=== PATIENT | male | born 1975 | race Caucasian/White ===

== ENCOUNTER 2018-02-06 05:57 | Emergency (ER) | payer BC, OTHER ==
[2018-02-06] MEDS ORDERED: Sodium Chloride 0.9% 10 ML Syringe FLUSH PRN (06:25)
[2018-02-06] MEDS ORDERED: Aspirin 81 MG Tab.Chew PO ONE (06:25)
--- NOTE | 2018-02-06 06:35 | EDM.PDOC ---
<Giancarlo Jones - Last Filed: 02/06/18 06:53> ED HPI GENERAL MEDICAL PROBLEM - General Chief Complaint: Cardiovascular Problem Stated Complaint: HIGH BLOOD PRESSURE Time Seen by Provider: 02/06/18 06:19 Source of Information: Reports: Patient History Limitations: Reports: No Limitations - History of Present Illness INITIAL COMMENTS - FREE TEXT/NARRATIVE: The patient presents with an anxious feeling and some chest pain. This all started this morning. He woke up with the chest pain. The pain is in the middle of his chest. He says it is sharp and he gets the pain from time to time. He has no shortness of breath with it. Exertion does not make it worse. He has no fever, chills, cough, nausea or vomiting. He denies abdominal pain. He was on his way to work this morning and the roads are not good and he started feeling anxious and uneasy. He says this has been going on for months every since his had a possible stroke and she was sent to [place]. Everything checked out okay for her. She did not have a stroke but since then he has felt anxious. He feels like he could have a heart attack or a stroke. He smokes and he is trying to quit but the more he thinks about quitting the more anxious he is. He says at times he has hard time sleeping and he has to walk around to get over the anxious feeling. He say Melissa Rao last year and she told him he has high blood pressure. He was going to try diet and exercise to bring it down but that has not helped. His blood pressure is elevated today. He denies headache. Onset: Gradual Duration: Hour(s): Location: Reports: Chest Quality: Reports: Sharp Severity: Mild Improves with: Reports: None Worsens with: Reports: None Associated Symptoms: Reports: Chest Pain. Denies: Cough, Diaphoresis, Fever/ Chills, Headaches, Nausea/Vomiting, Shortness of Breath - Related Data Allergies Allergy/AdvReac Type Severity Reaction Status Date / Time No Known Allergies Allergy Verified 02/06/18 06:15 Home Meds: Home Meds Citalopram [Citalopram HBr] 20 mg PO DAILY #30 tab 02/06/18 [Rx] amLODIPine Besylate [Norvasc] 10 mg PO DAILY #30 tablet 03/19/18 [Rx] Past Medical History Cardiovascular History: Reports: Hypertension - Past Surgical History Musculoskeletal Surgical History: Reports: Arthroscopic Knee Social & Family History - Tobacco Use Smoking Status *Q: Current Every Day Smoker Years of Tobacco use: 20 Packs/Tins Daily: 1 - Caffeine Use Caffeine Use: Reports: Coffee - Recreational Drug Use Recreational Drug Use: No ED ROS GENERAL - Review of Systems Review Of Systems: See Below Constitutional: Reports: No Symptoms HEENT: Reports: No Symptoms Respiratory: Reports: No Symptoms Cardiovascular: Reports: Chest Pain Endocrine: Reports: No Symptoms GI/Abdominal: Reports: No Symptoms : Reports: No Symptoms Musculoskeletal: Reports: No Symptoms Skin: Reports: No Symptoms Neurological: Reports: No Symptoms Psychiatric: Reports: Anxiety ED EXAM, GENERAL - Physical Exam Exam: See Below Exam Limited By: No Limitations General Appearance: Alert, No Apparent Distress Ears: Normal External Exam Nose: Normal Inspection Head: Atraumatic, Normocephalic Neck: Normal Inspection Respiratory/Chest: No Respiratory Distress, Lungs Clear, Normal Breath Sounds Cardiovascular: Regular Rate, Rhythm, No Edema, No Murmur GI/Abdominal: Soft, Non-Tender, No Organomegaly, No Mass Back Exam: Normal Inspection Extremities: Normal Inspection Neurological: Alert, Oriented, No Motor/Sensory Deficits EKG INTERPRETATION EKG Date: 02/06/18 Time: 06:30 Rhythm: NSR Rate (Beats/Min): 85 [place]: Normal P-Wave: Present QRS: Normal ST-T: Normal QT: Normal Course - Vital Signs Last Recorded V/S: Last Vital Signs Temp 36.3 C 02/06/18 06:12 Pulse 86 02/06/18 06:12 Resp 20 02/06/18 06:12 BP 167/104 H 02/06/18 06:12 Pulse Ox 100 02/06/18 06:12 - Orders/Labs/Meds Orders: Active Orders 24 hr Category Date Time Status Cardiac Monitoring [RC] . DIRECTED Care 02/06/18 06:25 Active EKG Documentation Completion [RC] STAT Care 02/06/18 06:26 Active Peripheral IV Care [RC] . DIRECTED Care 02/06/18 06:26 Active Chest 1V Frontal [CR] Stat Exams 02/06/18 06:26 Taken Sodium Chloride 0.9% [Saline Flush] Med 02/06/18 06:25 Active 10 ml FLUSH ASDIRECTED PRN Peripheral IV Insertion Adult [OM.PC] Stat Oth 02/06/18 06:25 Ordered Medication Orders Sodium Chloride (Saline Flush) 10 ml FLUSH ASDIRECTED PRN PRN Reason: Keep Vein Open Last Admin: 02/06/18 06:40 Dose: 10 ml Labs: Laboratory Tests 02/06/18 02/06/18 Range/Units 06:25 06:35 WBC 9.28 H (4.23-9.07) K/mm3 RBC 5.79 (4.63-6.08) M/mm3 Hgb 16.4 (13.7-17.5) gm/L Hct 48.5 (40.1-51.0) % MCV 83.8 (79.0-92.2) fl MCH 28.3 (25.7-32.2) pg MCHC 33.8 (32.2-35.5) g/dl RDW Std Deviation 41.9 (35.1-43.9) fL Plt Count 255 (163-337) K/mm3 MPV 9.2 L (9.4-12.3) fl Neut % (Auto) 63.8 (34.0-67.9) % Lymph % (Auto) 24.4 (21.8-53.1) % [place] % (Auto) 7.9 (5.3-12.2) % Eos % (Auto) 2.4 (0.8-7.0) Baso % (Auto) 0.9 (0.1-1.2) % Neut # (Auto) 5.93 H (1.78-5.38) K/mm3 Lymph # (Auto) 2.26 (1.32-3.57) K/mm3 [place] # (Auto) 0.73 (0.30-0.82) K/mm3 Eos # (Auto) 0.22 (0.04-0.54) K/mm3 Baso # (Auto) 0.08 (0.01-0.08) K/mm3 Sodium 136 (136-145) mEq/L Potassium 3.7 (3.5-5.1) mEq/L Chloride 101 (98-107) mEq/L Carbon Dioxide 27 (21-32) mEq/L Anion Gap 11.7 (5-15) BUN 17 (7-18) mg/dL Creatinine 1.1 (0.7-1.3) mg/dL Est Cr Clr Drug Dosing 102.42 mL/min Estimated GFR (MDRD) > 60 (>60) mL/min BUN/Creatinine Ratio 15.5 (14-18) Glucose 220 H (74-106) mg/dL Calcium 9.6 (8.5-10.1) mg/dL Total Bilirubin 0.7 (0.2-1.0) mg/dL AST 36 (15-37) U/L ALT 71 H (16-63) U/L Alkaline Phosphatase 79 (46-116) U/L Troponin I 0.029 (0.00-0.056) ng/mL Total Protein 7.2 (6.4-8.2) g/dl Albumin 4.0 (3.4-5.0) g/dl Globulin 3.2 gm/dL Albumin/Globulin Ratio 1.3 (1-2) Meds: Medications Generic Name Dose Route Start Last Admin Trade Name Freq PRN Reason Stop Dose Admin Sodium Chloride 10 ml 02/06/18 06:25 02/06/18 06:40 Saline Flush FLUSH 10 ml ASDIRECTED PRN Administration Keep Vein Open Discontinued Medications Generic Name Dose Route Start Last Admin Trade Name Freq PRN Reason Stop Dose Admin Aspirin 324 mg 02/06/18 06:25 02/06/18 06:40 Aspirin PO 02/06/18 06:26 324 mg ONETIME ONE Administration - Re-Assessments/Exams Free Text/Narrative Re-Assessment/Exam: 02/06/18 06:37 I ordered an IV saline lock, EKG, CXR, labs and aspirin. His EKG shows a NSR with no acute changes. 02/06/18 06:41 His CXR looks good. 02/06/18 06:53 It is change of shift. Dr Gupta to take over. Departure - Departure Disposition: Home, Self-Care 01 Clinical Impression: Non-cardiac chest pain, Uncontrolled hypertension, Generalized anxiety disorder Prescriptions: amLODIPine Besylate [Norvasc] 10 mg PO DAILY #30 tablet Citalopram [Citalopram HBr] 20 mg PO DAILY #30 tab Referrals: Melissa Rao GATE PERSON [Primary Care Provider] - Forms: ED Department Discharge Additional Instructions: Evaluation the emergency room this morning carried out primarily by Dr. Rojas. Sudden onset of central chest pain brought you to the ED. This is felt to be primarily anxiety related. Normal chest x-ray normal ECG and now normal labs showing no signs of cardiac her heart involvement. It is felt that you're suffering from generalized anxiety disorder for which he describes been going on for a significant period time and occur sporadically without any warning or reason. All his generalized anxiety disorder. Suggest use of citalopram 20 mg once daily every morning to try and bring this under control. Of note he won't do much for the first 10-12 days and after that then he should start to notice that she rarely experiences similar side effects such as pacing or agitation or stress related event. Second problem identified was uncontrolled high blood pressure. BP was primarily 165/95. It is therefore.suggested that you start blood pressure medication such as Norvasc 10 mg once daily which was started in the ED today. This will bring her pressure down gradually over the next couple of weeks. We are aiming for around 145-135 on the top and 85-80 on the bottom. Check her blood pressure when you're not in the clinic or hospital setting such as [facility] her pharmacy and write down the numbers that you get for your blood pressure. Follow-up with your doctor in 1 month's time for blood pressure review. Also for citalopram for anxiety tablet review. <Renny Gupta - Last Filed: 02/06/18 07:54> Course - Re-Assessments/Exams Free Text/Narrative Re-Assessment/Exam: 02/06/18 07:29 labs are back.Labs reveal a normal WBC at 9.28 with auto differential of 63.8% neutrophils. Hemoglobin 16.4 with hematocrit of 40.5. Platelet count is 255,000. Sodium 136 potassium 3.7. Chloride 11 bicarbonate 27. Anion gap is normal 11.7. BUN is 17 with a creatinine of 1.1. Glucose is elevated at 220. Liver function shows mildly elevated ALT at 71. At some point he should be checked for hepatitis C. Troponin I is less than 0.029. Normal Departure - Departure Time of Disposition: 07:49 Condition: Fair
[2018-02-06] MEDS ORDERED: HYDROmorphone 0.5 MG/0.5 ML SYRINGE IVPUSH ONE (07:28)
[2018-02-06] MEDS ORDERED: amLODIPine 10 MG Tab PO ONE (07:49)
--- NOTE | 2018-02-06 10:01 | CR ---
Chest: Portable view of the chest was obtained. Comparison: No prior study. Heart size and mediastinum are normal. Lungs are clear. Bony structures are unremarkable. Impression: 1. Nothing acute is appreciated on portable chest x-ray. Diagnostic code #1
== END 2018-02-06 08:07 | disposition home or self-care (01) ==
LOC: JD.ED 05:57
DX: F41.9 Anxiety disorder, unspecified (principal); R07.89 Other chest pain; I10 Essential (primary) hypertension; F17.210 Nicotine dependence, cigarettes, uncomplicated; Z79.899 Other long term (current) drug therapy
CPT/HCPCS: 36415; 71045; 80053; 84484; 85025; 93005; 99284; A9270; J7050; 93010; 99285-25

== ENCOUNTER 2018-02-06 14:16 | Emergency (ER) | payer OTHER ==
[2018-02-06] MEDS ORDERED: ALPRAZolam 1 MG Tab PO ONE (14:38)
--- NOTE | 2018-02-06 14:44 | EDM.PDOC ---
ED HPI GENERAL MEDICAL PROBLEM - General Chief Complaint: Allergic Reaction Stated Complaint: REACTION TO MEDICATION Time Seen by Provider: 02/06/18 14:30 Source of Information: Reports: Patient, Family History Limitations: Reports: No Limitations - History of Present Illness INITIAL COMMENTS - FREE TEXT/NARRATIVE: 42-year-old male returns to the ED for the second time today. Patient was seen earlier in the ED by Dr. Jones with some central chest discomfort associated with strong anxiety with the inability to relax and feeling of need to pace the floor etc. Complete cardiac workup was performed and was found to be negative. Decision made since he's having quite a bit of troubles with anxiety lately to start him on citalopram 20 mg a day. He received Norvasc 10 mg by mouth before leaving the department because blood pressure was sustained greater than 160/ 95. He reports that he went to the doctor picked up his medications around 0900 hrs. and took the medication basically an empty stomach ie. citalopram 20 mg within a couple hours he started to feel unwell with increased feeling of anxiety and numbness tingling in his left leg and like he was cold as ice. Broke out in a sweat felt flushed hot prickly etc. This may well been side effect of the citalopram and empty stomach since this is the first time he took it. Upon arrival his blood pressure is quite high at 188/97. Forward certainly not the Norvasc that precipitated the symptoms. Question is whether he developed another anxiety attack over the citalopram helped precipitate another anxiety attack. He feels somewhat better since Vanna return to the ED. Onset: Today Onset Date: 02/06/18 Onset Time: 11:00 Duration: Hour(s): Location: Reports: Generalized Quality: Reports: Same as Previous Episode (Only worse particularly involving his left lower extremity felt like it was cold or numb and tingly.) Severity: Moderate Improves with: Reports: None Worsens with: Reports: None Context: Reports: Other (Targeted on citalopram 20 mg daily this morning and this may have made him more anxious than he had been already.). Denies: Activity, Exercise, Lifting, Sick Contact, Trauma Associated Symptoms: Reports: Diaphoresis, Other (Dense of needing to pace the floor very uneasy no position is comfortable.). Denies: Confusion, Chest Pain, Cough, cough w sputum, Fever/Chills, Headaches, Loss of Appetite, Malaise, Nausea/Vomiting, Rash, Seizure, Shortness of Breath, Syncope Treatments [employer] CO[employer]: Reports: Other (see below) (He has taken no further medications today.) Headache Pain Score (Numeric/FACES): 6 - Related Data Allergies Allergy/AdvReac Type Severity Reaction Status Date / Time No Known Allergies Allergy Verified 02/06/18 14:23 Home Meds: Home Meds ALPRAZolam [Xanax] 1 mg PO Q8H PRN #12 tablet 02/06/18 [Rx] Citalopram [Citalopram HBr] 20 mg PO DAILY #30 tab 02/06/18 [Rx] amLODIPine Besylate [Norvasc] 10 mg PO DAILY #30 tablet 02/06/18 [Rx] Past Medical History Cardiovascular History: Reports: Hypertension - Past Surgical History Musculoskeletal Surgical History: Reports: Arthroscopic Knee Social & Family History - Tobacco Use Smoking Status *Q: Current Every Day Smoker Years of Tobacco use: 20 Packs/Tins Daily: 1 - Caffeine Use Caffeine Use: Reports: Coffee - Recreational Drug Use Recreational Drug Use: No - Living Situation & Occupation Living situation: Reports: Occupation: Employed ED ROS ALLERGIC REACTION - Review of Systems Review Of Systems: See Below Constitutional: Reports: Malaise, Weakness, Fatigue, Decreased Appetite, Weight Loss. Denies: Fever, Chills HEENT: Reports: No Symptoms Respiratory: Reports: No Symptoms Cardiovascular: Reports: No Symptoms Endocrine: Reports: No Symptoms GI/Abdominal: Reports: No Symptoms : Reports: No Symptoms Musculoskeletal: Reports: No Symptoms Skin: Reports: Other (Christmas a little prickly and hot for a period of time suggesting side effects from citalopram. Also is mildly diaphoretic.) Neurological: Reports: No Symptoms Psychiatric: Reports: Anxiety, Other Hematologic/Lymphatic: Reports: No Symptoms (Clinically expressed a panic attack again today.) Immunologic: Reports: No Symptoms ED EXAM GENERAL NO PERIP PULSE - Physical Exam Exam: See Below Exam Limited By: No Limitations General Appearance: Alert, WD/WN, Anxious, Mild Distress, Other (His hair is wet compatible with him having had diaphoresis) Eye Exam: Right Eye: Abnormal EOM, Bilateral Eye: Normal Fundi Throat/Mouth: Normal Inspection, Normal Lips, Normal Teeth, Normal Gums, Normal Oropharynx Head: Atraumatic, Normocephalic Neck: Normal Inspection, Supple, Non-Tender, Full Range of Motion. No: Lymphadenopathy (R), Tender Midline Respiratory/Chest: No Respiratory Distress, Lungs Clear, Normal Breath Sounds, No Accessory Muscle Use Cardiovascular: Normal Peripheral Pulses, Regular Rate, Rhythm, No Edema, No Murmur, No Rub GI/Abdominal: Normal Bowel Sounds, Soft, Non-Tender, No Organomegaly Neurological: Alert, Oriented, CN II-XII Intact, Normal Cognition, Normal Gait Psychiatric: Anxious Skin Exam: Warm, Dry, Intact, Normal Color, No Rash, Other (Skin feels cool now. Anus hair is moist suggesting that he has been recently diaphoretic) Course - Vital Signs Last Recorded V/S: Last Vital Signs Temp 36.6 C 02/06/18 14:29 Pulse 98 02/06/18 14:29 Resp 16 02/06/18 14:29 BP 180/98 H 02/06/18 14:29 Pulse Ox 97 02/06/18 14:29 - Orders/Labs/Meds Meds: Medications Discontinued Medications Generic Name Dose Route Start Last Admin Trade Name Freq PRN Reason Stop Dose Admin Alprazolam 1 mg 02/06/18 14:38 02/06/18 14:49 Xanax PO 02/06/18 14:39 1 mg ONETIME ONE Administration - Radiology Interpretation Free Text/Narrative:: 42-year-old male returns to the ED after experiencing either adverse effect to citalopram with precipitation of an anxiety attack almost panic attack with feeling of need to pace the floor position carpal feeling hot prickly numb tingly and [place] his left lower extremity. I've started him on Norvasc 10 mg in the ED because of persistent elevated blood pressure and a history of elevated blood pressure for which he has not been treated for. BP was in the ED was greater than 160/95 the entire time he was here. He was also started on citalopram due to panic attack and generalized anxiety disorder 20 mg strength. She took this about 9:00 this morning after leaving the hospital he picked up his prescription. Took this on an empty stomach. I suspect this may have exacerbated his underlying anxiety attack or you had another anxiety attack and some possible to know. At any rate blood pressure remains markedly elevated and therefore the Norvasc certainly did not lower his blood pressure causing to have any of the side effects. Again most of his symptoms are that of anxiety or panic attack. Given Xanax 1 mg by mouth. Stay in the ED for 45 minutes to an hour to monitor his blood pressure which remains quite high as 167/97 monos in the room. - Re-Assessments/Exams Free Text/Narrative Re-Assessment/Exam: 02/06/18 15:16 blood pressure slowly improving. Currently down to 151/94. Departure - Departure Time of Disposition: 15:38 Disposition: Home, Self-Care 01 Condition: Fair Clinical Impression: Anxiety attack Adverse effects of medication Qualifiers: Encounter type: initial encounter Qualified Code(s): T88.7XXA - Unspecified adverse effect of drug or medicament, initial encounter - Discharge Information Prescriptions: ALPRAZolam [Xanax] 1 mg PO Q8H PRN #12 tablet PRN Reason: Anxiety attack Instructions: Panic Attacks, [id number] Referrals: Melissa Rao CHIEF CHEMIST [Primary Care Provider] - Forms: ED Department Discharge Additional Instructions: Evaluation in the emergency room today after initiating dosage of citalopram 20 mg once daily for control of generalized anxiety disorder. It appears that this caused an increase in the amount of anxiety that she will experience which can occur in certain patients on the first week of use of medication. At any rate which he described with flushing hot spell with sweat nausea and coldness numbness and tingling was that of an anxiety attack likely made worse by citalopram 20 mg started today for the first time. Your blood pressure was actually still too high and did come down with time to 154/89. Therefore the Norvasc that you are started on today is not part of the problem. The fact that the medication may have been taken into stomach may have caused a rapid absorption of the medicine which you're not use too which caused adverse effect. I suggested is to cut the medication in half and only take 10 mg of citalopram for the first 10-12 days of therapy and then increase to a full tablet daily. Norvasc is to be taken once daily at the same time for blood pressure control. I will write a prescription for Xanax 1 mg tablet which is which he received in the ED today. There are 12 tablets which may be taken on an as-needed basis when he develops similar type symptoms. Will be more less likely to occur over the next week to 10 days until the citalopram starts to work. His tablet to be taken every 8 hours as needed but should be taken when not at work or when you can get home from work as it may cause some degree of sedation. Again follow-up with your personal care provider if any further problems occur.
== END 2018-02-06 15:50 | disposition home or self-care (01) ==
LOC: JD.ED 14:16
DX: F41.9 Anxiety disorder, unspecified (principal); T43.225A Adverse effect of selective serotonin reuptake inhibitors, initial encounter; F17.210 Nicotine dependence, cigarettes, uncomplicated; Z79.899 Other long term (current) drug therapy
CPT/HCPCS: 99283; A9270

== ENCOUNTER 2018-02-20 08:00 | Emergency (ER) | payer OTHER ==
[2018-02-20] MEDS ORDERED: Sodium Chloride 0.9% 10 ML Syringe FLUSH PRN (08:44)
[2018-02-20] MEDS ORDERED: Sodium Chloride 0.9% 1,000 ML IV SCH (08:45)
[2018-02-20] MEDS ORDERED: Sodium Chloride 0.9% 10 ML Syringe FLUSH ONE (09:55)
[2018-02-20] MEDS ORDERED: Diatrizoate Meglumine/Diatrizoate Sodium 37% 120 ML Bottle PO ONE (09:55)
[2018-02-20] MEDS ORDERED: Iopamidol 612 MG/ML 150 ML Bottle IVPUSH ONE (09:55)
--- NOTE | 2018-02-20 10:27 | CT ---
CT abdomen and pelvis Technique: Multiple axial sections were obtained from above the dome of the diaphragm inferiorly through the pubic symphysis. Intravenous and oral contrast was utilized. Delayed images were also obtained through the abdomen and pelvis. Comparison: No previous abdominal imaging. Findings: Liver shows diffuse fatty infiltration. Small low-density finding is seen within the anterior right lobe of the liver measuring about 1 cm in size. This is nonspecific for cyst or small solid lesion. This is likely incidental as no additional liver abnormalities are appreciated. Spleen appears within normal limits. Visualized lung bases show nothing acute. Adrenal glands show no nodule. Pancreas is within normal limits. Gallbladder contains no calcified gallstones. Kidneys show symmetric contrast enhancement without hydronephrosis or discrete mass. Aorta shows atherosclerotic calcification without aneurysm. No retroperitoneal adenopathy or mesenteric abnormalities are seen. Appendix is seen which is normal. No pelvic mass or adenopathy is seen. No bowel wall thickening is appreciated. No bowel dilatation is seen. Delayed images shows contrast throughout the ureters and bladder. No free fluid or inflammatory changes seen. Impression: 1. Diffuse fatty infiltration within the liver. 1 cm liver lesion anteriorly within the right lobe which is nonspecific but likely incidental as no other liver lesion is present. 2. No additional abnormality is seen on CT study of the abdomen and pelvis. Diagnostic code #3
[2018-02-20] MEDS ORDERED: ALPRAZolam 1 MG Tab PO ONE (11:37)
--- NOTE | 2018-02-20 11:41 | EDM.PDOC ---
<Lindsey Lincoln - Last Filed: 02/20/18 11:32> ED HPI GENERAL MEDICAL PROBLEM - General Chief Complaint: Diabetic Complaint Stated Complaint: HIGH BLOOD SUGAR/HIGH BLOOD PRESSURE Time Seen by Provider: 02/20/18 08:13 Source of Information: Reports: Patient, Family History Limitations: Reports: No Limitations - History of Present Illness INITIAL COMMENTS - FREE TEXT/NARRATIVE: Patient is a 42 YO male who presents with high blood glucose. He states he was on his way to work when he started feeling really shaky. He turned around and went home. At home he reports a blood glucose of 223. He was started on Metformin approximately 2 weeks ago. He reports not feeling well Tuesday, yesterday, and was not able to eat. He has been having "stomach issues" for about 2 years. He describes it as cold sweats immediately after eating followed by diarrhea. He does admit to some indigestion. He has some abdominal pain located in the left lower quadrant. He states the pain was worse yesterday, rated as 5/10. He had a BM this morning and the pain is better today. He states he has had black tarry stool for several months now. He denies any bright red blood. The abdominal pain goes from right to left and is rarely in the same location. He has not seen his PCP about this abdominal complaint and has not had any workup in the past. The abdominal pain was not worse after starting the Metformin. He states that he has lost about 20 lbs in the last 2 months because he skips meals due to this stomach pain. - Related Data Allergies Allergy/AdvReac Type Severity Reaction Status Date / Time No Known Allergies Allergy Verified 02/20/18 08:12 Home Meds: Home Meds ALPRAZolam [Xanax] 1 mg PO Q8H PRN #12 tablet 02/06/18 [Rx] Citalopram [Citalopram HBr] 20 mg PO DAILY #30 tab 02/06/18 [Rx] amLODIPine Besylate [Norvasc] 10 mg PO DAILY #30 tablet 02/06/18 [Rx] ALPRAZolam [Xanax] 1 mg PO QID PRN #20 tablet 02/20/18 [Rx] metFORMIN [Glucophage] 500 mg PO DAILY 02/20/18 [History] Past Medical History Cardiovascular History: Reports: Hypertension Endocrine/Metabolic History: Reports: Diabetes, Type II - Past Surgical History Musculoskeletal Surgical History: Reports: Arthroscopic Knee Social & Family History - Family History Family Medical History: Noncontributory - Tobacco Use Smoking Status *Q: Current Every Day Smoker Years of Tobacco use: 25 Packs/Tins Daily: 0.1 - Caffeine Use Caffeine Use: Reports: Coffee - Recreational Drug Use Recreational Drug Use: No - Living Situation & Occupation Living situation: Reports: Occupation: Employed ED ROS GENERAL - Review of Systems Review Of Systems: See Below Constitutional: Reports: Weight Loss (20 lbs over the past 2 months) Respiratory: Reports: No Symptoms Cardiovascular: Reports: No Symptoms Endocrine: Reports: Other (hyperglycemia) GI/Abdominal: Reports: Abdominal Pain (LLQ), Black Stool, Diarrhea, Decreased Appetite. Denies: Bloody Stool, Difficulty Swallowing, Distension, Hematemesis , Mucous in Stool, Vomiting : Reports: No Symptoms Musculoskeletal: Reports: No Symptoms Skin: Reports: No Symptoms Neurological: Reports: No Symptoms Psychiatric: Reports: Anxiety ED EXAM GENERAL NO PERIP PULSE - Physical Exam Exam: See Below Exam Limited By: No Limitations General Appearance: Alert, WD/WN, No Apparent Distress, Anxious Throat/Mouth: Normal Inspection, Normal Lips, Normal Gums Head: Atraumatic, Normocephalic Respiratory/Chest: No Respiratory Distress, Lungs Clear, Normal Breath Sounds Cardiovascular: Normal Peripheral Pulses, Regular Rate, Rhythm GI/Abdominal: Normal Bowel Sounds, Soft, No Distention, Tender (mild tenderness LLQ). No: Guarding, Rebound Rectal (Males) Exam: Normal Exam Neurological: Alert, Oriented, CN II-XII Intact Psychiatric: Normal Affect, Anxious Skin Exam: Warm, Dry, Intact, Normal Color Course - Vital Signs Last Recorded V/S: Last Vital Signs Temp 97.7 F 02/20/18 08:07 Pulse 84 02/20/18 08:07 Resp 16 02/20/18 08:07 BP 155/107 H 02/20/18 08:07 Pulse Ox 98 02/20/18 08:07 - Orders/Labs/Meds Orders: Active Orders 24 hr Category Date Time Status Cardiac Monitoring [RC] . DIRECTED Care 02/20/18 08:44 Active Peripheral IV Care [RC] . DIRECTED Care 02/20/18 08:46 Active UA W/MICROSCOPIC [URIN] Stat Lab 02/20/18 10:15 Ordered Sodium Chloride 0.9% [Normal Saline] 1,000 ml Med 02/20/18 08:45 Active IV ASDIRECTED Sodium Chloride 0.9% [Saline Flush] Med 02/20/18 08:44 Active 10 ml FLUSH ASDIRECTED PRN Peripheral IV Insertion Adult [OM.PC] Stat Oth 02/20/18 08:44 Ordered Medication Orders Sodium Chloride (Normal Saline) 1,000 mls @ 125 mls/hr IV ASDIRECTED LAINE Last Admin: 02/20/18 09:07 Dose: 125 mls/hr Sodium Chloride (Saline Flush) 10 ml FLUSH ASDIRECTED PRN PRN Reason: Keep Vein Open Last Admin: 02/20/18 09:07 Dose: 10 ml Labs: Laboratory Tests 02/20/18 02/20/18 02/20/18 Range/Units 08:04 09:00 09:00 WBC 11.78 H (4.23-9.07) K/mm3 RBC 6.01 (4.63-6.08) M/mm3 Hgb 17.1 (13.7-17.5) gm/L Hct 51.0 (40.1-51.0) % MCV 84.9 (79.0-92.2) fl MCH 28.5 (25.7-32.2) pg MCHC 33.5 (32.2-35.5) g/dl RDW Std Deviation 42.9 (35.1-43.9) fL Plt Count 332 (163-337) K/mm3 MPV 9.3 L (9.4-12.3) fl Neut % (Auto) 77.5 H (34.0-67.9) % Lymph % (Auto) 13.8 L (21.8-53.1) % [place] % (Auto) 7.0 (5.3-12.2) % Eos % (Auto) 0.6 L (0.8-7.0) Baso % (Auto) 0.8 (0.1-1.2) % Neut # (Auto) 9.13 H (1.78-5.38) K/mm3 Lymph # (Auto) 1.62 (1.32-3.57) K/mm3 [place] # (Auto) 0.82 (0.30-0.82) K/mm3 Eos # (Auto) 0.07 (0.04-0.54) K/mm3 Baso # (Auto) 0.10 H (0.01-0.08) K/mm3 Manual Slide Review Normal smear Sodium 145 (136-145) mEq/L Potassium 4.1 (3.5-5.1) mEq/L Chloride 106 (98-107) mEq/L Carbon Dioxide 27 (21-32) mEq/L Anion Gap 16.1 H (5-15) BUN 13 (7-18) mg/dL Creatinine 1.2 (0.7-1.3) mg/dL Est Cr Clr Drug Dosing 93.89 mL/min Estimated GFR (MDRD) > 60 (>60) mL/min BUN/Creatinine Ratio 10.8 L (14-18) Glucose 170 H (74-106) mg/dL POC Glucose 174 H (70-105) mg/dL Calcium 10.2 H (8.5-10.1) mg/dL Total Bilirubin 0.6 (0.2-1.0) mg/dL AST 36 (15-37) U/L ALT 66 H (16-63) U/L Alkaline Phosphatase 76 (46-116) U/L Total Protein 8.0 (6.4-8.2) g/dl Albumin 4.4 (3.4-5.0) g/dl Globulin 3.6 gm/dL Albumin/Globulin Ratio 1.2 (1-2) Lipase 111 (73-393) U/L Urine Color (Yellow) Urine Appearance (Clear) Urine pH (5.0-8.0) Ur Specific [place] (1.005-1.030) Urine Protein (Negative) Urine Glucose (UA) (Negative) Urine Ketones (Negative) Urine Occult Blood (Negative) Urine Nitrite (Negative) Urine Bilirubin (Negative) Urine Urobilinogen (0.2-1.0) Ur Leukocyte Esterase (Negative) Urine RBC (0-5) /hpf Urine WBC (0-5) /hpf Ur Epithelial Cells (0-5) /hpf Urine Bacteria (FEW) /hpf Urine Mucus (FEW) /hpf H. pylori IgG Antibody (NEGATIVE) 02/20/18 02/20/18 Range/Units 09:00 10:15 WBC (4.23-9.07) K/mm3 RBC (4.63-6.08) M/mm3 Hgb (13.7-17.5) gm/L Hct (40.1-51.0) % MCV (79.0-92.2) fl MCH (25.7-32.2) pg MCHC (32.2-35.5) g/dl RDW Std Deviation (35.1-43.9) fL Plt Count (163-337) K/mm3 MPV (9.4-12.3) fl Neut % (Auto) (34.0-67.9) % Lymph % (Auto) (21.8-53.1) % [place] % (Auto) (5.3-12.2) % Eos % (Auto) (0.8-7.0) Baso % (Auto) (0.1-1.2) % Neut # (Auto) (1.78-5.38) K/mm3 Lymph # (Auto) (1.32-3.57) K/mm3 [place] # (Auto) (0.30-0.82) K/mm3 Eos # (Auto) (0.04-0.54) K/mm3 Baso # (Auto) (0.01-0.08) K/mm3 Manual Slide Review Sodium (136-145) mEq/L Potassium (3.5-5.1) mEq/L Chloride (98-107) mEq/L Carbon Dioxide (21-32) mEq/L Anion Gap (5-15) BUN (7-18) mg/dL Creatinine (0.7-1.3) mg/dL Est Cr Clr Drug Dosing mL/min Estimated GFR (MDRD) (>60) mL/min BUN/Creatinine Ratio (14-18) Glucose (74-106) mg/dL POC Glucose (70-105) mg/dL Calcium (8.5-10.1) mg/dL Total Bilirubin (0.2-1.0) mg/dL AST (15-37) U/L ALT (16-63) U/L Alkaline Phosphatase (46-116) U/L Total Protein (6.4-8.2) g/dl Albumin (3.4-5.0) g/dl Globulin gm/dL Albumin/Globulin Ratio (1-2) Lipase (73-393) U/L Urine Color Yellow (Yellow) Urine Appearance Clear (Clear) Urine pH 6.0 (5.0-8.0) Ur Specific [place] 1.010 (1.005-1.030) Urine Protein Negative (Negative) Urine Glucose (UA) 2+ H (Negative) Urine Ketones Negative (Negative) Urine Occult Blood Negative (Negative) Urine Nitrite Negative (Negative) Urine Bilirubin Negative (Negative) Urine Urobilinogen 0.2 (0.2-1.0) Ur Leukocyte Esterase Negative (Negative) Urine RBC 0-5 (0-5) /hpf Urine WBC 0-5 (0-5) /hpf Ur Epithelial Cells 0-5 (0-5) /hpf Urine Bacteria Few (FEW) /hpf Urine Mucus Few (FEW) /hpf H. pylori IgG Antibody Negative (NEGATIVE) Meds: Medications Generic Name Dose Route Start Last Admin Trade Name Freq PRN Reason Stop Dose Admin Sodium Chloride 1,000 mls @ 125 mls/hr 02/20/18 08:45 02/20/18 09:07 Normal Saline IV 125 mls/hr ASDIRECTED LAINE Administration Sodium Chloride 10 ml 02/20/18 08:44 02/20/18 09:07 Saline Flush FLUSH 10 ml ASDIRECTED PRN Administration Keep Vein Open Discontinued Medications Generic Name Dose Route Start Last Admin Trade Name Freq PRN Reason Stop Dose Admin Alprazolam 1 mg 02/20/18 11:37 02/20/18 11:46 Xanax PO 02/20/18 11:38 1 mg ONETIME ONE Administration Diatrizoate Meglum/Diatrizoate Sod 90 ml 02/20/18 09:55 02/20/18 10:08 Gastrografin 37% PO 02/20/18 09:56 90 ml ONETIME ONE Administration Iopamidol 125 ml 02/20/18 09:55 02/20/18 10:08 Isovue-300 (61%) IVPUSH 02/20/18 09:56 125 ml ONETIME ONE Administration Sodium Chloride 10 ml 02/20/18 09:55 02/20/18 10:08 Saline Flush FLUSH 02/20/18 09:56 10 ml ONETIME ONE Administration Departure - Departure Disposition: Home, Self-Care 01 Clinical Impression: Anxiety Abdominal pain Qualifiers: Abdominal location: left lower quadrant Qualified Code(s): R10.32 - Left lower quadrant pain Diarrhea Qualifiers: Diarrhea type: unspecified type Qualified Code(s): R19.7 - Diarrhea, unspecified - Discharge Information Prescriptions: ALPRAZolam [Xanax] 1 mg PO QID PRN #20 tablet PRN Reason: Anxiety Referrals: Melissa Rao, [employer] [Primary Care Provider] - 1 Week Forms: ED Department Discharge Additional Instructions: Take your medication as prescribed except the metformin. Do not take that for 2 days. Follow up with Melissa Rao within 1 week. Please return if you are worse. - My Orders Last 24 Hours: My Active Orders 02/20/18 08:44 Cardiac Monitoring [RC] . DIRECTED Sodium Chloride 0.9% [Saline Flush] 10 ml FLUSH ASDIRECTED PRN Peripheral IV Insertion Adult [OM.PC] Stat 02/20/18 08:45 Sodium Chloride 0.9% [Normal Saline] 1,000 ml IV ASDIRECTED 02/20/18 08:46 Peripheral IV Care [RC] . DIRECTED 02/20/18 10:15 UA W/MICROSCOPIC [URIN] Stat - Assessment/Plan Last 24 Hours: My Active Orders 02/20/18 08:44 Cardiac Monitoring [RC] . DIRECTED Sodium Chloride 0.9% [Saline Flush] 10 ml FLUSH ASDIRECTED PRN Peripheral IV Insertion Adult [OM.PC] Stat 02/20/18 08:45 Sodium Chloride 0.9% [Normal Saline] 1,000 ml IV ASDIRECTED 02/20/18 08:46 Peripheral IV Care [RC] . DIRECTED 02/20/18 10:15 UA W/MICROSCOPIC [URIN] Stat <Giancarlo Jones - Last Filed: 02/20/18 12:08> ED HPI GENERAL MEDICAL PROBLEM - General Source of Information: Reports: Patient, Family History Limitations: Reports: No Limitations - History of Present Illness Onset: Gradual Duration: Hour(s): Associated Symptoms: Denies: Chest Pain, Shortness of Breath ED ROS GENERAL - Review of Systems Review Of Systems: See Below Constitutional: Reports: Weight Loss Respiratory: Reports: No Symptoms Cardiovascular: Reports: No Symptoms Endocrine: Reports: Other GI/Abdominal: Reports: Abdominal Pain, Black Stool, Diarrhea, Decreased Appetite. Denies: Bloody Stool, Difficulty Swallowing, Distension, Hematemesis , Mucous in Stool, Vomiting : Reports: No Symptoms Musculoskeletal: Reports: No Symptoms Skin: Reports: No Symptoms Neurological: Reports: No Symptoms ED EXAM GENERAL NO PERIP PULSE - Physical Exam Exam: See Below Exam Limited By: No Limitations General Appearance: Alert, WD/WN, No Apparent Distress, Anxious Ears: Normal External Exam Nose: Normal Inspection Throat/Mouth: Normal Inspection, Normal Lips, Normal Gums Head: Atraumatic, Normocephalic Respiratory/Chest: No Respiratory Distress, Lungs Clear, Normal Breath Sounds Cardiovascular: Normal Peripheral Pulses, Regular Rate, Rhythm GI/Abdominal: Normal Bowel Sounds, Soft, No Distention, Tender. No: Guarding, Rebound Rectal (Males) Exam: Normal Exam, Heme - Stool Neurological: Alert, Oriented, CN II-XII Intact Psychiatric: Normal Affect, Anxious Skin Exam: Warm, Dry, Intact, Normal Color Course - Re-Assessments/Exams Free Text/Narrative Re-Assessment/Exam: 02/20/18 11:58 I ordered an IV NS zofran 4mg IV, labs and a CT of his abdomen and pelvis. 02/20/18 11:59 His CBC looks good. His blood sugar is elevated at 170. His CT shows a benign liver lesion. He feels better. He had no blood in his stool but he does have black stool at times. He may need an EGD and colonoscopy. I will have him follow up with Melissa Rao to discuss this. He is also anxious. I will get him on some xanax for this. Departure - Departure Time of Disposition: 12:05 Condition: Good
== END 2018-02-20 12:15 | disposition home or self-care (01) ==
LOC: JD.ED 08:00
DX: R10.32 Left lower quadrant pain (principal); R19.7 Diarrhea, unspecified; F41.9 Anxiety disorder, unspecified; F17.210 Nicotine dependence, cigarettes, uncomplicated; E11.9 Type 2 diabetes mellitus without complications; Z79.899 Other long term (current) drug therapy; Z79.84 Long term (current) use of oral hypoglycemic drugs; I10 Essential (primary) hypertension
CPT/HCPCS: 36415; 74177; 80053; 81001; 82962; 83690; 85025; 86677; 96360; 96361; 99284; A9270; J7040; J7050; Q9963; Q9967

== ENCOUNTER 2019-11-13 09:45 | Emergency (ER) | payer BC, OTHER ==
--- NOTE | 2019-11-13 14:25 | CT ---
Head CT Technique: Multiple axial sections through the brain were obtained. Intravenous contrast was not utilized. Comparison: No prior intracranial imaging is available. Findings: Ventricles along with basal cisterns and sulci over the convexities are within normal limits for the patient's age. No abnormal parenchymal densities are seen. No evidence of intracranial hemorrhage. No midline shift or mass effect is seen. Bone window settings were reviewed which shows no acute calvarial abnormality. Visualized paranasal sinuses are clear. Mastoid sinuses are also clear. Impression: 1. Nothing acute is appreciated on noncontrast head CT exam. Diagnostic code #1 This report was dictated in [place] Standard Time
--- NOTE | 2019-11-13 14:54 | EDM.PDOC ---
ED HPI GENERAL MEDICAL PROBLEM - General Chief Complaint: Cardiovascular Problem Stated Complaint: HEART PALPITATIONS X 3 DAYS Time Seen by Provider: 11/13/19 10:20 Source of Information: Reports: Patient, RN Notes Reviewed - History of Present Illness INITIAL COMMENTS - FREE TEXT/NARRATIVE: 43-year-old male comes in with intermittent heart palpitations for the past several days. His is also concerned because he just very recently "lost his job". His that he is suffering from stress, anxiety and depression. That he just "wants to sleep", not showing a lot of energy or interest in things. He also has had decreased appetite, worsening frontal headache and is reported to have lost about 70 pounds over the last 3-4 months. In 12-18 hours per day up at [place] and then apparently just lost his job in the last week or so and now not working. 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 DEVICE SALES REPRESENTATIVE: BS check at home was 95 Headache Pain Score (Numeric/FACES): 7 - Related Data Allergies Allergy/AdvReac Type Severity Reaction Status Date / Time No Known Allergies Allergy Verified 02/20/18 08:12 Home Meds: Home Meds Dulaglutide [Trulicity] 1.5 mg SQ WEEKLY 11/13/19 [History] LORazepam [Ativan] 0.5 mg PO Q12HR #20 tablet 11/13/19 [Rx] metFORMIN [Glucophage] 500 mg PO BIDMEALS 11/13/19 [History] Past Medical History Cardiovascular History: Reports: Hypertension Endocrine/Metabolic History: Reports: Diabetes, Type II - Past Surgical History HEENT Surgical History: Reports: Oral Surgery Musculoskeletal Surgical History: Reports: Arthroscopic Knee Social & Family History - Family History Family Medical History: Noncontributory - Tobacco Use Smoking Status *Q: Current Every Day Smoker Years of Tobacco use: 24 Packs/Tins Daily: 1 - Caffeine Use Caffeine Use: Reports: Coffee - Recreational Drug Use Recreational Drug Use: No - Living Situation & Occupation Living situation: Reports: Occupation: Employed ED ROS GENERAL - Review of Systems Review Of Systems: See Below Constitutional: Denies: Fever, Chills, Diaphoresis HEENT: Denies: Throat Pain Respiratory: Denies: Shortness of Breath, Cough Cardiovascular: Reports: Palpitations. Denies: Chest Pain Endocrine: Reports: Fatigue GI/Abdominal: Reports: Decreased Appetite. Denies: Abdominal Pain, Nausea, Vomiting Musculoskeletal: Reports: No Symptoms Skin: Reports: No Symptoms Neurological: Reports: No Symptoms Psychiatric: Reports: Anxiety, Depression (possible) ED EXAM, GENERAL - Physical Exam Exam: See Below General Appearance: Alert, No Apparent Distress Eye Exam: Bilateral Eye: PERRL Throat/Mouth: Normal Inspection, Normal Oropharynx Head: Atraumatic Neck: Supple Respiratory/Chest: No Respiratory Distress, Lungs Clear, Normal Breath Sounds Cardiovascular: Regular Rate, Rhythm GI/Abdominal: Soft, Non-Tender Back Exam: No: CVA Tenderness (L), CVA Tenderness (R) Extremities: Normal Inspection, Normal Range of Motion. No: Pedal Edema, Leg Pain Neurological: Alert, Oriented, No Motor/Sensory Deficits Psychiatric: Normal Affect, Normal Mood Skin Exam: Warm, Dry, Normal Color EKG INTERPRETATION EKG Date: 11/13/19 Rhythm: NSR [place]: Normal P-Wave: Present QRS: Normal ST-T: Normal QT: Normal Course - Vital Signs Last Recorded V/S: Last Vital Signs Temp 97.2 F 11/13/19 10:20 Pulse 89 11/13/19 10:20 Resp 19 11/13/19 10:20 BP 163/103 H 11/13/19 10:20 Pulse Ox 99 11/13/19 10:20 - Orders/Labs/Meds Orders: Active Orders 24 hr Category Date Time Status Holter Monitor 48 Hours [RC] .PRN Care 11/13/19 14:48 Active Labs: Laboratory Tests 11/13/19 11/13/19 Range/Units 11:05 11:05 WBC 9.67 H (4.23-9.07) K/mm3 RBC 5.57 (4.63-6.08) M/mm3 Hgb 15.6 D (13.7-17.5) gm/dl Hct 46.8 (40.1-51.0) % MCV 84.0 (79.0-92.2) fl MCH 28.0 (25.7-32.2) pg MCHC 33.3 (32.2-35.5) g/dl RDW Std Deviation 44.6 H (35.1-43.9) fL Plt Count 294 (163-337) K/mm3 MPV 9.2 L (9.4-12.3) fl Neut % (Auto) 71.2 H (34.0-67.9) % Lymph % (Auto) 20.0 L (21.8-53.1) % [place] % (Auto) 5.8 (5.3-12.2) % Eos % (Auto) 2.1 (0.8-7.0) Baso % (Auto) 0.6 (0.1-1.2) % Neut # (Auto) 6.89 H (1.78-5.38) K/mm3 Lymph # (Auto) 1.93 (1.32-3.57) K/mm3 [place] # (Auto) 0.56 (0.30-0.82) K/mm3 Eos # (Auto) 0.20 (0.04-0.54) K/mm3 Baso # (Auto) 0.06 (0.01-0.08) K/mm3 Sodium 144 (136-145) mEq/L Potassium 4.3 (3.5-5.1) mEq/L Chloride 107 (98-107) mEq/L Carbon Dioxide 27 (21-32) mEq/L Anion Gap 14.3 (5-15) BUN 11 (7-18) mg/dL Creatinine 1.0 (0.7-1.3) mg/dL Est Cr Clr Drug Dosing 111.49 mL/min Estimated GFR (MDRD) > 60 (>60) mL/min BUN/Creatinine Ratio 11.0 L (14-18) Glucose 104 (74-106) mg/dL Calcium 9.6 (8.5-10.1) mg/dL Total Bilirubin 0.6 (0.2-1.0) mg/dL AST 17 (15-37) U/L ALT 25 (16-63) U/L Alkaline Phosphatase 59 (46-116) U/L Total Protein 6.9 (6.4-8.2) g/dl Albumin 3.9 (3.4-5.0) g/dl Globulin 3.0 gm/dL Albumin/Globulin Ratio 1.3 (1-2) - Re-Assessments/Exams Free Text/Narrative Re-Assessment/Exam: 11/14/19 15:37 have put order in for 48 hr holter moniter. His is asking if he can have something for stress/anxiety to help him work through just losing his job and having difficulty dealing with that. Have prescribed ativan 0.5 mg to take bid for a short period of time. Discharge instr. as documented. Departure - Departure Time of Disposition: 15:00 Disposition: Home, Self-Care 01 Condition: Fair Clinical Impression: Palpitations, Anxiety Headache Qualifiers: Headache type: unspecified Headache chronicity pattern: unspecified pattern Intractability: not intractable Qualified Code(s): R51 - Headache Prescriptions: LORazepam [Ativan] 0.5 mg PO Q12HR #20 tablet Instructions: Generalized Anxiety Disorder, Adult, Palpitations, [id number] Referrals: Leonora Cho MD [Primary Care Provider] - Forms: ED Department Discharge Additional Instructions: 48 hour holter moniter. Try to eat a regular healthy diet, drink plenty of water to maintain hydration, continue current medications as prescribed, Ativan 0.5 mg twice daily for stress and anxiety. 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 See Dr. Hopkins in about one week as planned. Return to ED as needed if symptoms worsening in any way. Sepsis Event Note - Evaluation Sepsis Screening Result: No Definite Risk - Focused Exam Date Exam was Performed: 11/14/19 Time Exam was Performed: 15:36 - My Orders Last 24 Hours: My Active Orders 11/13/19 14:48 Holter Monitor 48 Hours [RC] .PRN - Assessment/Plan Last 24 Hours: My Active Orders 11/13/19 14:48 Holter Monitor 48 Hours [RC] .PRN
== END 2019-11-13 15:10 | disposition home or self-care (01) ==
LOC: JD.ED 09:45
DX: F41.9 Anxiety disorder, unspecified (principal); R51 Headache; I10 Essential (primary) hypertension; E11.9 Type 2 diabetes mellitus without complications; F17.210 Nicotine dependence, cigarettes, uncomplicated; Z79.84 Long term (current) use of oral hypoglycemic drugs
CPT/HCPCS: 36415; 70450; 70450-26; 80053; 85025; 93005; 93225; 93226; 99285-25